=== PATIENT | female | born 1990 | race Caucasian/White ===

== ENCOUNTER → 2024-01-18 09:25 | Outpatient (REF) | payer BC, SELFPAY | LOC: WDC 09:25 | PROVIDERS: ATTENDING PHYSICIAN Nurse Practitioner Adult Health | DX: R22.31 Localized swelling, mass and lump, right upper limb (principal); N63.31 Unspecified lump in axillary tail of the right breast | CPT/HCPCS: 76642; 77062; 77066 ==